=== PATIENT | female | born 1985 | race Caucasian/White ===

== ENCOUNTER 2023-06-23 13:19 | Observation (INO) | payer BC ==
[2023-06-23 13:49] VITALS: BP 131/86; PULSE 100; RESP 18; TEMP 98.4; O2SAT 97
== END 2023-06-23 15:05 | disposition home or self-care (01) ==
LOC: OB 13:19
PROVIDERS: ADMIT Obstetrics & Gynecology; ATTEND Obstetrics & Gynecology
DX: Z34.83 Encounter for supervision of other normal pregnancy, third trimester (principal); Z3A.38 38 weeks gestation of pregnancy
CPT/HCPCS: 84112

== ENCOUNTER 2023-06-27 04:56 | Inpatient (IN) | payer BC ==
[2023-06-27 05:41] LABS: Absolute Neutrophil Ct (ANC) 6.39 x10^3/uL (1.4-6.9); BASOPHIL % 0.4 % (0.0-0.4); Basophil (Absolute #) 0.04 x10^3/uL (0-0.4); Eosinophil % 1.3 % (0.00-5.0); Eosinophil (Absolute #) 0.13 x10^3/uL (0-0.5); Hematocrit 34.9 % (35-47); Hemoglobin 11.5 g/dL (12.0-16.0); IMMATURE GRAN # 0.09 x10^3u/L (0.00-0.03); IMMATURE GRAN % 0.9 % (0.00-0.4); Lymphocyte (Absolute #) 2.44 x10^3/uL (1.0-4.6); Mean Cell Volume 86.8 fL (78-100); Mean Corpuscular Hemoglobin 28.6 pg (26-32); Mean Platelet Volume 11.1 fL (7.5-11.0); Monocyte (Absolute #) 0.68 x10^3/uL (0.0-1.3); Neutrophil % 65.4 % (36.0-66.0); Platelet Count 181 x10^3/uL (150-450); Red Blood Count 4.02 x10^6/uL (4.1-5.4); Red Cell Distribution Width 13.5 % (11.5-14.0); White Blood Count 9.8 x10^3/uL (4.0-10.5)
[2023-06-27 05:55] LABS: INR 0.83 (0.8-3.0); PROTIME 9.2 SECONDS (9.4-12.5); PTT 23.8 SECONDS (25.1-36.5)
[2023-06-27 05:59] LABS: Amphetamine,Urine NEGATIVE (NEGATIVE); Barbiturate,Urine NEGATIVE (NEGATIVE); Benzodiazepine,Urine NEGATIVE (NEGATIVE); Cocaine,Urine NEGATIVE (NEGATIVE); Methadone,Urine NEGATIVE (NEGATIVE); Opiate,Urine NEGATIVE (NEGATIVE); PCP,Urine NEGATIVE (NEGATIVE); THC,Urine NEGATIVE (NEGATIVE)
[2023-06-27] MEDS ORDERED: Zofran 4 MG/2 ML VIAL IV PRN (06:00)
[2023-06-27] MEDS: Lactated Ringers 1,000 ML IV SCH ×3 (06:00→12:40)
[2023-06-27] MEDS ORDERED: XYLOCAINE 1% HCL 20 ML MDV IJ PRN (06:00)
[2023-06-27] MEDS ORDERED: TYLENOL EXTRA STRENGTH 500 MG PO PRN ×2 (06:00→18:11)
[2023-06-27 06:17] LABS: ABO TYPING B; Antibody Screen NEGATIVE (NEGATIVE); RH TYPING POSITIVE
[2023-06-27] MEDS ORDERED: PITOCIN 30 UNITS/ LR 500 ML 30 UNITS/500 ML PLAST..BAG IV SCH (07:00)
[2023-06-27] MEDS ORDERED: BRETHINE 1 MG/ML SQ PRN (07:00)
[2023-06-27] MEDS ORDERED: Lactated Ringers 1,000 ML IV ONE (07:32)
[2023-06-27] MEDS ORDERED: Ephedrine Sulfate 50 MG/ML IV PRN (07:32)
[2023-06-27] MEDS ORDERED: FENTANYL 2 MCG-BUPIV 0.125%-NS 250 ML Epidur 250 ML EPIDURAL SCH (07:45)
[2023-06-27] MEDS ORDERED: Mylicon 80MG PO PRN (18:11)
[2023-06-27] MEDS ORDERED: Dermoplast Spray TP PRN (18:11)
[2023-06-27] MEDS ORDERED: MOTRIN 400 MG PO PRN (18:11)
[2023-06-27] MEDS ORDERED: LANSINOH 40 GM TOP PRN (18:11)
[2023-06-27] MEDS ORDERED: Dulcolax 10 MG SUPP PR PRN (18:11)
[2023-06-27] MEDS ORDERED: TUCKS TP ONE (18:30)
[2023-06-27] MEDS ORDERED: TUCKS TP PRN (18:37)
[2023-06-27] MEDS ORDERED: Docusate Sodium 100 MG PO SCH (22:00)
[2023-06-28 02:33] VITALS: RESP 18
[2023-06-28 05:27] LABS: Absolute Neutrophil Ct (ANC) 7.18 x10^3/uL (1.4-6.9); BASOPHIL % 0.3 % (0.0-0.4); Basophil (Absolute #) 0.03 x10^3/uL (0-0.4); Eosinophil % 0.7 % (0.00-5.0); Eosinophil (Absolute #) 0.08 x10^3/uL (0-0.5); Hematocrit 30.7 % (35-47); Hemoglobin 10.1 g/dL (12.0-16.0); IMMATURE GRAN # 0.09 x10^3u/L (0.00-0.03); IMMATURE GRAN % 0.8 % (0.00-0.4); Lymphocyte (Absolute #) 2.62 x10^3/uL (1.0-4.6); Lymphocytes % 24.1 % (24.0-44.0); Mean Corpuscular Hemoglobin 28.9 pg (26-32); Mean Corpuscular Hgb Concent. 32.9 g/dL (32-36); Mean Platelet Volume 11.6 fL (7.5-11.0); Monocyte (Absolute #) 0.87 x10^3/uL (0.0-1.3); Neutrophil % 66.1 % (36.0-66.0); Platelet Count 146 x10^3/uL (150-450); Red Blood Count 3.49 x10^6/uL (4.1-5.4); Red Cell Distribution Width 13.9 % (11.5-14.0); White Blood Count 10.9 x10^3/uL (4.0-10.5)
--- NOTE | 2023-06-28 08:01 | PCM.NOTE ---
Date and Time: 06/28/23 0800 Subjective Assessment: ppd 1 sp pt resting in bed doing well without complaints. able to ambulate and tolerate diet. vss afebrile abd; soft uterus; firm lochia; mild hgb; 10 a/p sp ppd 1 desires to be discharged today should fu office in 3 wks OBJECTIVE DATA Vital Signs: Vital Signs - 24 hr Temp Pulse Resp BP BP Pulse Ox 06/28/23 02:00 98.1 F 79 18 108/65 96 06/28/23 00:00 20 06/27/23 20:11 97.6 F 86 20 123/70 97 06/27/23 18:00 97.7 F 97 H 16 118/74 97 06/27/23 16:00 97.6 F 85 14 110/73 96 06/27/23 15:00 97.6 F 85 14 110/73 96 06/27/23 14:30 97.6 F 85 14 110/73 96 06/27/23 14:15 85 14 110/73 96 06/27/23 14:00 75 14 138/77 96 06/27/23 13:45 83 16 133/66 96 06/27/23 13:30 97.7 F 113 H 18 131/92 96 06/27/23 13:00 97.6 F 95 H 14 114/64 97 06/27/23 12:45 83 20 125/83 97 06/27/23 12:30 84 20 135/88 98 06/27/23 12:15 97 H 20 120/80 98 06/27/23 12:00 80 20 125/83 97 06/27/23 11:45 77 20 123/81 98 06/27/23 11:30 97.4 F 70 20 122/80 98 06/27/23 11:15 97.4 F 83 16 127/83 98 06/27/23 11:00 97.4 F 70 20 122/80 98 06/27/23 10:45 70 20 122/80 98 06/27/23 10:30 69 20 106/66 96 06/27/23 10:15 69 18 115/72 96 06/27/23 10:00 97.4 F 69 20 119/78 97 06/27/23 09:45 97.4 F 82 20 119/78 98 06/27/23 09:30 68 20 109/58 99 06/27/23 09:15 68 20 109/58 99 06/27/23 09:00 101 H 20 109/58 114/64 97 06/27/23 08:45 82 20 119/78 98 06/27/23 08:30 70 20 117/79 98 06/27/23 08:15 70 20 140/83 97 Pain Assessment - Last Documented Pain Intensity 0 Intake and Output: Intake & Output 06/25/23 06/26/23 06/27/23 06/28/23 11:59 11:59 11:59 11:59 Intake Total 500 Output Total 550 Balance -50 Weight 140 kg Lab Results: Lab Results-Last 24 Hours 06/28/23 Range/Units 04:12 WBC 10.9 H (4.0-10.5) x10^3/uL RBC 3.49 L (4.1-5.4) x10^6/uL Hgb 10.1 L (12.0-16.0) g/dL Hct 30.7 L (35-47) % MCV 88.0 (78-100) fL MCH 28.9 (26-32) pg MCHC 32.9 (32-36) g/dL RDW 13.9 (11.5-14.0) % Plt Count 146 L (150-450) x10^3/uL MPV 11.6 H (7.5-11.0) fL Gran % 66.1 H (36.0-66.0) % Immature Gran % (Auto) 0.8 H (0.00-0.4) % Nucleat RBC Rel Count 0.0 (0.00-0.1) % Eos # (Auto) 0.08 (0-0.5) x10^3/uL Immature Gran # (Auto) 0.09 H (0.00-0.03) x10^3u/L Absolute Lymphs (auto) 2.62 (1.0-4.6) x10^3/uL Absolute Monos (auto) 0.87 (0.0-1.3) x10^3/uL Absolute Nucleated RBC 0.00 (0.00-0.01) x10^3u/L Lymphocytes % 24.1 (24.0-44.0) % Monocytes % 8.0 (0.0-12.0) % Eosinophils % 0.7 (0.00-5.0) % Basophils % 0.3 (0.0-0.4) % Absolute Granulocytes 7.18 H (1.4-6.9) x10^3/uL Basophils # 0.03 (0-0.4) x10^3/uL Multi-Disciplinary Progress Notes: Multi-Disciplinary Progress Notes 06/27/23 18:56 Nutrition Note by Minerva Garcias 0810: Earl Hinton CRNA in room for epidural set up. 0816: loading dose vitals as follows: 0810 140/83 HR 77 98% O2 0825 142/82 HR 80 98% 0840 102/67 HR 98 98% O2 Initialized on 06/27/23 18:56 - END OF NOTE Assessment/Plan (1) (vaginal after ) Current Visit: Yes Status: Acute Code(s): O34.219 - MATERNAL CARE FOR UNSP TYPE SCAR FROM PREVIOUS DEL
--- NOTE | 2023-06-28 08:04 | PCM.DS ---
Discharge Summary Date of Admission: 06/27/23 07:47 Admitting Physician: MAGUE CASTREJON DO Consults: Consults on Case 06/27/23 07:32 Notify Anesthesia Provider PRN Primary Care Provider: MAGUE CASTREJON DO Allergies Allergies No Known Drug Allergies Allergy (Verified 06/20/23 14:21) Hospital Summary - Hospital Course Hospital Course: pt admitted on jun 27 for pitocin induction at 39 wks gestation with hx of previous csection for twin gestation however had 2 previous vaginal deliveries without issue. pt received an epidural and was able to delivery live baby boy without complication. at this time pt had hgb at 10 and stable with stable vitals. pt desires to be discharged home today. pt stable for discharge and mini whitten advised to fu in office in 3 wks. all questions answered to her satisfaction. - Vitals & Intake/Output Vital Signs: Vital Signs Temperature 98.1 F 06/28/23 02:00 Pulse Rate 79 06/28/23 02:00 Respiratory Rate 18 06/28/23 02:00 Blood Pressure 108/65 06/28/23 02:00 O2 Sat by Pulse Oximetry 96 06/28/23 02:00 Intake & Output: Intake & Output 06/25/23 06/26/23 06/27/23 06/28/23 11:59 11:59 11:59 11:59 Intake Total 500 Output Total 550 Balance -50 Weight 140 kg - Lab Result Diagrams: 06/28/23 04:12 Lab Results-Last 24 Hrs: Lab Results-Last 24 Hours 06/28/23 Range/Units 04:12 WBC 10.9 H (4.0-10.5) x10^3/uL RBC 3.49 L (4.1-5.4) x10^6/uL Hgb 10.1 L (12.0-16.0) g/dL Hct 30.7 L (35-47) % MCV 88.0 (78-100) fL MCH 28.9 (26-32) pg MCHC 32.9 (32-36) g/dL RDW 13.9 (11.5-14.0) % Plt Count 146 L (150-450) x10^3/uL MPV 11.6 H (7.5-11.0) fL Gran % 66.1 H (36.0-66.0) % Immature Gran % (Auto) 0.8 H (0.00-0.4) % Nucleat RBC Rel Count 0.0 (0.00-0.1) % Eos # (Auto) 0.08 (0-0.5) x10^3/uL Immature Gran # (Auto) 0.09 H (0.00-0.03) x10^3u/L Absolute Lymphs (auto) 2.62 (1.0-4.6) x10^3/uL Absolute Monos (auto) 0.87 (0.0-1.3) x10^3/uL Absolute Nucleated RBC 0.00 (0.00-0.01) x10^3u/L Lymphocytes % 24.1 (24.0-44.0) % Monocytes % 8.0 (0.0-12.0) % Eosinophils % 0.7 (0.00-5.0) % Basophils % 0.3 (0.0-0.4) % Absolute Granulocytes 7.18 H (1.4-6.9) x10^3/uL Basophils # 0.03 (0-0.4) x10^3/uL Final Diagnosis/Problem List - Final Discharge Diagnosis/Problem (1) (vaginal after ) Current Visit: Yes Status: Acute Code(s): O34.219 - MATERNAL CARE FOR UNSP TYPE SCAR FROM PREVIOUS DEL - Discharge Disposition: Home, Self-Care Condition: Stable Prescriptions: No Action No Reportable Medications [No Reported Medications] Follow up with: MAGUE CASTREJON DO [Primary Care Provider] - 3 weeks
[2023-06-28 08:27] LABS: HBsAg Screen Negative (Negative)
[2023-06-28 09:57] VITALS: BP 123/77; PULSE 100; TEMP 97.7; O2SAT 97
[2023-06-28] MEDS ORDERED: FERREX 150 PO SCH (10:00)
== END 2023-06-28 16:05 | disposition home or self-care (01) | DRG 807 ==
LOC: OB 04:56 → OBSVTOIN 07:47
PROVIDERS: ADMIT Obstetrics & Gynecology; ATTEND Obstetrics & Gynecology
PROC: 10E0XZZ Delivery of Products of Conception, External Approach (ICD-10-PCS; principal; 2023-06-27)
DX: O69.81X0 Labor and delivery complicated by cord around neck, without compression, not applicable or unspecified (principal); Z37.0 Single live birth; Z3A.39 39 weeks gestation of pregnancy; Z20.828 Contact with and (suspected) exposure to other viral communicable diseases
CPT/HCPCS: 36415; 80307; 85025; 85610; 85730; 86850; 86900; 86901; 87340; J2590; A9270-GY